=== PATIENT | female | born 1990 | race Caucasian/White ===

== ENCOUNTER 2018-04-02 13:57 | Emergency (ER) | payer OTHER ==
[2018-04-02 14:30] VITALS: TEMP 97.1
[2018-04-02] MEDS ORDERED: KETOROLAC TROMETHAMINE 30 MG/ML SOL IV ONE (14:31)
[2018-04-02] MEDS ORDERED: KETOROLAC TROMETHAMINE 30 MG/ML SOL ONE (14:45)
[2018-04-02 14:46] LABS: LACTIC ACID 1.1 mMol/L (0.0-2.0)
[2018-04-02 14:57] LABS: INR 0.97 (0.86-1.12)
[2018-04-02 14:58] LABS: ALBUMIN 3.7 gm/dl (3.4-5.0); BILIRUBIN,TOTAL 0.1 mg/dl (0.2-1.0); CALCIUM 8.3 mg/dl (8.5-10.1); CARBON DIOXIDE 24.7 mEq/L (21-32); CREATININE 0.72 mg/dl (0.60-1.00); POTASSIUM 4.2 mMol/L (3.5-5.1); TOTAL PROTEIN 7.6 gm/dl (6.4-8.2)
[2018-04-02 14:59] LABS: HEMATOCRIT 38 % (35-47); HEMOGLOBIN 11.8 gm/dl (12.0-15.5); MEAN CORPUSCULAR HEMOGLOBIN 26.3 pg (27.0-32.0); MEAN CORPUSCULAR HGB CONC 31.5 gm/dl (32.0-36.0); MEAN CORPUSCULAR VOLUME 83 fL (81-99)
[2018-04-02 15:08] LABS: APPEARANCE,URINE Clear; BILIRUBIN,URINE NEGATIVE (NEGATIVE); COLOR,URINE Yellow; GLUCOSE, URINE (UA) NEGATIVE (NEGATIVE); KETONES,URINE NEGATIVE (NEGATIVE); LEUKOCYTE ESTERASE ,URINE NEGATIVE (NEGATIVE); NITRATE,URINE NEGATIVE (NEGATIVE); OCCULT BLOOD,URINE NEGATIVE (NEG-TRACE); UROBILINOGEN,URINE 0.2 (0.2-1.0 EU)
[2018-04-02 15:09] VITALS: BP 137/86; PULSE 70; RESP 16; O2SAT 99
[2018-04-02 15:21] LABS: BAND NEUTROPHILS % (MANUAL) 0 %; BASOPHILS % (MANUAL) 0 % (0-3); EOSINOPHILS % (MANUAL) 2 % (0-9); LYMPHOCYTES % (MANUAL) 27 % (10-50); MONOCYTES % (MANUAL) 4 % (0-12); NEUTROPHILS % (MANUAL) 67 % (37-80)
[2018-04-02 15:22] LABS: NORMAL RBCS NORMAL RBCS
[2018-04-02 15:28] LABS: BACTERIA TRACE (< 1+); CRYSTALS NEGATIVE (0-3 AVE/HPF); RBC,URINE 0-1 (0-3AV/HPF); WBC,URINE 0-1 (0-5AV/HPF)
== END 2018-04-02 16:33 | disposition home or self-care (01) | DRG 392 ==
LOC: ED 13:57
DX: R10.31 Right lower quadrant pain (principal)
CPT/HCPCS: 74177; 80053; 81001; 85007; 85027; 85610; 96374; 99283; J1885; Q9967